=== PATIENT | female | born 1990 | race Caucasian/White ===

== ENCOUNTER 2016-10-11 15:12 | Emergency (ER) | payer BC, OTHER ==
[~2016-10-11] VITALS: Ht 175.3 cm; Wt 99.8 kg
[~2016-10-11 15:12] MED LIST: HYDR-2758 PO; NITR100C63 PO
[2016-10-11 16:01] VITALS: BP 129/72
--- NOTE | 2016-10-11 16:26 | RAD ---
2 views of the Chest 10/11/2016 5:29 PM Indication: Left-sided rib pain Comparison: None available Findings: There is no focal consolidation or infiltrate identified. There is no effusion or pneumothorax. The cardiomediastinal silhouette and pulmonary vasculature are within normal limits. No osseous abnormality is identified. Impression: No evidence of acute cardiopulmonary process.
--- NOTE | 2016-10-11 16:37 | PHYS DOC ---
Past Medical History Past Medical History: No Pertinent History Past Surgical History: Cholecystectomy Alcohol Use: Occasionally Drug Use: None Adult General Chief Complaint Chief Complaint: RIB PAIN HPI HPI Patient is a 26 year old female presents to emergency department stating that she's having left-sided abdominal pain that started around 2:00 this morning. She states the pain comes and goes and is sharp in nature. She states that the pain does not radiate. It has not caused any nausea or vomiting. She states that her stool this morning with soft with normal. She states that she was seen at urgent care and was diagnosed with an early urinary tract infection. She does state that she has some left flank pain and discomfort. Review of Systems Review of Systems Constitutional: Denies fever or chills [] Eyes: Denies change in visual acuity, redness, or eye pain [] HENT: Denies nasal congestion or sore throat [] Respiratory: Denies cough or shortness of breath [] Cardiovascular: No additional information not addressed in HPI [] GI: Left-sided abdominal pain, denies nausea, vomiting, bloody stools or diarrhea [] : Denies dysuria or hematuria [] Musculoskeletal: Denies back pain or joint pain [] Integument: Denies rash or skin lesions [] Neurologic: Denies headache, focal weakness or sensory changes [] Endocrine: Denies polyuria or polydipsia [] Allergies Allergies Allergies Coded Allergies Type Severity Reaction Last Updated Verified No Known Drug Allergies 08/22/14 No Physical Exam Physical Exam Constitutional: Well developed, well nourished, no acute distress, non-toxic appearance. [] HENT: Normocephalic, atraumatic, bilateral external ears normal, oropharynx moist, no oral exudates, nose normal. [] Eyes: PERRLA, EOMI, conjunctiva normal, no discharge. [] Neck: Normal range of motion, no tenderness, supple, no stridor. [] Cardiovascular:Heart rate regular rhythm, no murmur [] Lungs & Thorax: Bilateral breath sounds clear to auscultation [] Abdomen: Bowel sounds hypoactive, soft, no tenderness, no masses, no pulsatile masses. [] Skin: Warm, dry, no erythema, no rash. [] Back: No tenderness, left CVA tenderness. [] Extremities: No tenderness, no cyanosis, no clubbing, ROM intact, no edema. [] Neurologic: Alert and oriented X 3, normal motor function, normal sensory function, no focal deficits noted. [] Psychologic: Affect normal, judgement normal, mood normal. [] Current Patient Data Vital Signs Vital Signs Date Time Temp Pulse Resp B/P (MAP) Pulse Ox O2 Delivery O2 Flow Rate FiO2 10/11/16 16:01 98.0 102 24 99 Room Air 98.0 EKG EKG [] Radiology/Procedures Radiology/Procedures [][place] [address] IMAGING REPORT Signed PATIENT: ESTRELLA JAY ACCOUNT: [id number] : 1990 LOCATION: ER AGE: 26 SEX: F EXAM STATUS: REG ER ORD. PHYSICIAN: DEMSOND JAMES APRN REASON: left sided abdominal pain PROCEDURE: KUB KUB, 10/11/2016: History: Left-sided pain The abdominal gas pattern is unremarkable. There is no evidence of organomegaly. No abnormal abdominal calcification is seen. IMPRESSION: No significant abnormality is detected. DICTATED and SIGNED BY: ELVIN FLANNERY MD DATE: 10/11/16 1703 CC: DESMOND JAMES APRN; NO PCP; NON,STAFF ~ [place] [id number] IMAGING REPORT Signed PATIENT: ESTRELLA JAY ACCOUNT: [id number] : 1990 LOCATION: ER AGE: 26 SEX: F EXAM STATUS: REG ER ORD. PHYSICIAN: NURY MARTINEZ APRN REASON: rib pain PROCEDURE: CHEST PA & LATERAL 2 views of the Chest 10/11/2016 5:29 PM Indication: Left-sided rib pain Comparison: None available Findings: There is no focal consolidation or infiltrate identified. There is no effusion or pneumothorax. The cardiomediastinal silhouette and pulmonary vasculature are within normal limits. No osseous abnormality is identified. Impression: No evidence of acute cardiopulmonary process. DICTATED and SIGNED BY: PIPE SOLANO MD DATE: 10/11/16 1623 CC: NURY MARTINEZ APRN; NO PCP; NON,STAFF ~ Course & Med Decision Making Course & Med Decision Making Pertinent Labs and Imaging studies reviewed. (See chart for details) Patient states that she had slight shortness of air with the pain and discomfort however chest x-ray was negative for any abnormalities. KUB was negative for any abnormalities. Patient was placed on antibiotic at urgent care for urinary tract infection. I suspect with her having left CVA tenderness that she may have a kidney infection as well. Patient will continue with the antibiotic as prescribed with encouragement to drink plenty of fluids such as water and cranberry juice. Avoid cranberry juice cocktail, carbonated beverages , citrus fruits and alcohol. Patient once again denies any nausea or vomiting. We'll recommend that she follow up with her primary care physician in the next 5 -7 days. Since symptoms to return back to emergency department as been provided. [] Dragon Disclaimer Dragon Disclaimer This electronic medical record was generated, in whole or in part, using a voice recognition dictation system. Departure Departure Impression: Primary Impression: Left sided abdominal pain Disposition: 01 HOME, SELF-CARE Condition: STABLE Referrals: NO PCP (PCP) Patient Instructions: Abdominal Pain, [id number] Additional Instructions: Activity as tolerated Continue to take the antibiotic as prescribed Tylenol or Ibuprofen for pain and discomfort Drink plenty of fluids such as water and cranberry juice Avoid cranberry juice cocktail, carbonated beverages, citrus fruits, alcohol and caffeine as these are considered irritants to the bladder. Followup with your primary care provider in 7-10 days Return to emergency department as needed for signs and symptoms that become worse. DESMOND JAMES APRN Oct 11, 2016 16:37
--- NOTE | 2016-10-11 17:06 | RAD ---
KUB, 10/11/2016: History: Left-sided pain The abdominal gas pattern is unremarkable. There is no evidence of organomegaly. No abnormal abdominal calcification is seen. IMPRESSION: No significant abnormality is detected.
== END 2016-10-11 17:43 | disposition home or self-care (01) ==
LOC: ER 15:12
DX: R10.9 Unspecified abdominal pain (principal); R07.81 Pleurodynia; Z90.49 Acquired absence of other specified parts of digestive tract
CPT/HCPCS: 71020; 74000; 99284

== ENCOUNTER 2018-03-18 10:14 | Emergency (ER) | payer SELFPAY ==
[~2018-03-18] VITALS: Ht 175.3 cm; Wt 104.3 kg
[~2018-03-18 10:14] MED LIST changes: -HYDR-2758 PO; +HYDR-2761 PO
[2018-03-18 11:00] LABS: BILIRUBIN,URINE NEGATIVE (NEG); CLARITY,URINE CLEAR; COLOR,URINE YELLOW; NITRITE,URINE NEGATIVE (NEG); PROTEIN,URINE NEGATIVE (NEG-TRACE)
[2018-03-18 11:09] LABS: BACTERIA,URINE FEW /HPF (0-FEW); RBC,URINE OCC /HPF (0-2); SQUAMOUS EPITHELIAL CELL,UR MOD /LPF
[2018-03-18 11:27] LABS: BASO # 0.1 x10^3/uL (0.0-0.2); BASO % 1 % (0-3); EOS # 0.1 x10^3/uL (0.0-0.7); EOS % 2 % (0-3); HEMATOCRIT 41.1 % (36.0-47.0); HEMOGLOBIN 13.9 g/dL (12.0-15.5); LYMPH # 1.3 x10^3/uL (1.0-4.8); LYMPH % 18 % (24-48); MEAN CORPUSCULAR HEMOGLOBIN 31 pg (25-35); MEAN CORPUSCULAR HGB CONC 34 g/dL (31-37); MEAN CORPUSCULAR VOLUME 90 fL (79-100); MONO # 0.7 x10^3/uL (0.0-1.1); MONO % 9 % (0-9); NEUT % 70 % (31-73); PLATELET COUNT 239 x10^3/uL (140-400); RED BLOOD COUNT 4.56 x10^6/uL (3.50-5.40); WHITE BLOOD COUNT 7.1 x10^3/uL (4.0-11.0)
[2018-03-18 11:29] LABS: CALCIUM 8.8 mg/dL (8.5-10.1); CREATININE 0.7 mg/dL (0.6-1.0); GFR 101.1; POTASSIUM 3.7 mmol/L (3.5-5.1)
[2018-03-18] MEDS ORDERED: cefTRIAXone IM 250 MG VIAL IM ONE (11:30)
[2018-03-18] MEDS ORDERED: AZITHROMYCIN 250 MG TABLET. PO ONE (11:30)
--- NOTE | 2018-03-18 11:34 | PHYS DOC ---
Past Medical History Past Medical History: Other Additional Past Medical Histor: preeclampsia with past Past Surgical History: Cholecystectomy Alcohol Use: None Drug Use: None Adult General Chief Complaint Chief Complaint: ABDOMINAL PAIN IN HPI HPI Patient is a 27 year old female who presents to the emergency room with complaints of lower left quadrant abdominal cramping in early . Patient states her last menstrual cycle was on 02/01/2018. She is 3, para 1, A1. She denies any vaginal bleeding. States that she has had low back pain with urinary frequency, nausea, and vomiting. Patient states she has only vomited one time in the last 24 hours. She denies any dysuria, fever, foul- smelling urine, diarrhea, or urgency. He states she was seen at a clinic 10 days ago and was told that her test is positive. She also had a pelvic ultrasound at that time and was told that a gestational sac was not visible at this time. Pt reports increased clear vaginal discharge, denies any vaginal itching or odor. Review of Systems Review of Systems Constitutional: Denies fever or chills [] HENT: Denies nasal congestion or sore throat [] Respiratory: Denies cough or shortness of breath [] Cardiovascular: No additional information not addressed in HPI [] GI: Denies abdominal pain, nausea, vomiting, or diarrhea [] : Denies dysuria or hematuria; see HPI [] Musculoskeletal: Denies back pain or joint pain [] Integument: Denies rash or skin lesions [] Neurologic: Denies headache, focal weakness or sensory changes [] All other systems were reviewed and found to be within normal limits, except as documented in this note. Current Medications Current Medications Current Medications Medications (Trade) Dose Ordered Sig/Clau Start Time Stop Time Status Last Admin Dose Admin Azithromycin (Zithromax) 1,000 mg 1X ONCE 03/18/18 11:30 03/18/18 11:31 DC 03/18/18 11:43 1,000 MG Ceftriaxone Sodium (Rocephin Im) 250 mg 1X ONCE 03/18/18 11:30 03/18/18 11:31 DC 03/18/18 11:43 250 MG Allergies Allergies Allergies Coded Allergies Type Severity Reaction Last Updated Verified No Known Drug Allergies 03/18/18 No Physical Exam Physical Exam Constitutional: Well developed, well nourished, no acute distress, non-toxic appearance. [] HENT: Normocephalic, atraumatic, bilateral external ears normal, oropharynx moist, no oral exudates, nose normal. [] Eyes: conjunctiva normal, no discharge. [] Pelvic Exam: [employer] present Abdomen: Nontender, soft External Genitalia: Normal Skin Speculum: Normal vaginal mucosa, purulent cervical discharge Bimanual: No adnexal masses, L adnexal tenderness, positive CMT Skin: Warm, dry, no erythema, no rash. [] Extremities: No cyanosis, no clubbing, ROM intact, no edema. [] Neurologic: Alert and oriented X 3, normal motor function, normal sensory function, no focal deficits noted. [] Psychologic: Affect normal, judgement normal, mood normal. [] Current Patient Data Vital Signs Vital Signs Date Time Temp Pulse Resp B/P (MAP) Pulse Ox O2 Delivery O2 Flow Rate FiO2 03/18/18 12:59 80 18 111/64 (80) 99 Room Air 03/18/18 10:20 98.3 98.3 Lab Values Laboratory Tests Test 03/18/18 10:20 03/18/18 10:25 03/18/18 11:10 Urine Collection Type Unknown Urine Color Yellow Urine Clarity Clear Urine pH 7.0 Urine Specific [place] 1.025 Urine Protein Negative mg/dL (NEG-TRACE) Urine Glucose (UA) Negative mg/dL (NEG) Urine Ketones (Stick) Negative mg/dL (NEG) Urine Blood Negative (NEG) Urine Nitrite Negative (NEG) Urine Bilirubin Negative (NEG) Urine Urobilinogen Dipstick 1.0 mg/dL (0.2 mg/dL) Urine Leukocyte Esterase Large (NEG) Urine RBC Occ /HPF (0-2) Urine WBC 11-20 /HPF (0-4) Urine Squamous Epithelial Cells Mod /LPF Urine Bacteria Few /HPF (0-FEW) Urine Mucus Slight /LPF POC Urine HCG, Qualitative Hcg positive (Negative) White Blood Count 7.1 x10^3/uL (4.0-11.0) Red Blood Count 4.56 x10^6/uL (3.50-5.40) Hemoglobin 13.9 g/dL (12.0-15.5) Hematocrit 41.1 % (36.0-47.0) Mean Corpuscular Volume 90 fL (79-100) Mean Corpuscular Hemoglobin 31 pg (25-35) Mean Corpuscular Hemoglobin Concent 34 g/dL (31-37) Red Cell Distribution Width 13.0 % (11.5-14.5) Platelet Count 239 x10^3/uL (140-400) Neutrophils (%) (Auto) 70 % (31-73) Lymphocytes (%) (Auto) 18 % (24-48) L Monocytes (%) (Auto) 9 % (0-9) Eosinophils (%) (Auto) 2 % (0-3) Basophils (%) (Auto) 1 % (0-3) Neutrophils # (Auto) 5.0 x10^3uL (1.8-7.7) Lymphocytes # (Auto) 1.3 x10^3/uL (1.0-4.8) Monocytes # (Auto) 0.7 x10^3/uL (0.0-1.1) Eosinophils # (Auto) 0.1 x10^3/uL (0.0-0.7) Basophils # (Auto) 0.1 x10^3/uL (0.0-0.2) Maternal Serum HCG Beta Subunit 86279 mIU/mL (0-5) H Sodium Level 140 mmol/L (136-145) Potassium Level 3.7 mmol/L (3.5-5.1) Chloride Level 104 mmol/L (98-107) Carbon Dioxide Level 28 mmol/L (21-32) Anion Gap 8 (6-14) Blood Urea Nitrogen 10 mg/dL (7-20) Creatinine 0.7 mg/dL (0.6-1.0) Estimated GFR (Cockcroft-Gault) 101.1 BUN/Creatinine Ratio 14 (6-20) Glucose Level 77 mg/dL (70-99) Calcium Level 8.8 mg/dL (8.5-10.1) Total Bilirubin 0.4 mg/dL (0.2-1.0) Aspartate Amino Transferase (AST) 13 U/L (15-37) L Alanine Aminotransferase (ALT) 24 U/L (14-59) Alkaline Phosphatase 62 U/L (46-116) Total Protein 7.3 g/dL (6.4-8.2) Albumin 3.5 g/dL (3.4-5.0) Albumin/Globulin Ratio 0.9 (1.0-1.7) L Laboratory Tests 03/18/18 11:10 Laboratory Tests 03/18/18 11:10 Microbiology 03/18/18 Wet Prep - Final, Complete EKG EKG [] Radiology/Procedures Radiology/Procedures PROCEDURE: OB <14 WKS W/TV Obstetrical ultrasound, 03/18/2018: HISTORY: Pelvic pain, Transabdominal and transvaginal scans were obtained. There is a single intrauterine gestational sac. It contains a yolk sac and a pole demonstrating a crown-rump rump length of 4 mm. This suggests a gestational age of 6 weeks and 1 day yielding a sonographic EDC of 11/11/2015. Faint cardiac activity is evident with a heart rate of 100 bpm. There is no evidence of subchorionic hemorrhage. The left ovary is unremarkable. The right ovary is mildly enlarged and contains 2 cysts, the largest width which measures 2.2 cm. There are several other smaller follicular cysts in the right ovary. Blood flow is present in both ovaries. The adnexal regions are otherwise unremarkable. A trace amount of free fluid is noted in the pelvis. IMPRESSION: 1. Single viable intrauterine fetus of approximately 6 weeks gestational age. 2. Small right ovarian cysts. 3. Trace amount of free fluid in the pelvis.[] Course & Med Decision Making Course & Med Decision Making Pertinent Labs and Imaging studies reviewed. (See chart for details) [] Dragon Disclaimer Dragon Disclaimer This electronic medical record was generated, in whole or in part, using a voice recognition dictation system. Departure Departure Impression: Primary Impression: Normal IUP (intrauterine ) on ultrasound Additional Impressions: Urinary tract infection affecting Contact with and (suspected) exposure to infections with a predominantly sexual mode of transmission Disposition: 01 HOME, SELF-CARE Condition: STABLE Referrals: NO PCP (PCP) Patient Instructions: ABCs of , - Urinary Tract Infection Additional Instructions: According to your ultrasound you are 6 weeks 1 day and your due date is 11/10/18. You were treated for a suspected STI with Rocephin, and Zithromax. Avoid having intercourse until the results of gonorrhea and chlamydia testing are available, these results will not be available for 48 hours. If one or both of these tests is positive, you need to refrain from intercourse for approximately 2 weeks following the treatment of any current partners. Fill prescription and use as directed. Increase clear fluids avoiding bladder irritants such as caffeine, carbonation, and spicy foods. Follow-up with your OB /ZONING TECHNICIAN for further care. Scripts Cephalexin (KEFLEX) 500 Mg Capsule 1 CAP PO BID, #14 CAP 0 Refills Prov: EUGENE MELÉNDEZ [employer]GER [employer] 03/18/18 Problem Qualifiers Primary Impression: Normal IUP (intrauterine ) on ultrasound Trimester: first trimester Qualified Codes: Z34.91 - Encounter for supervision of normal , unspecified, first trimester EUGENE MELÉNDEZ MANAGER [employer] Mar 18, 2018 11:34
[2018-03-18 11:35] LABS: ALBUMIN 3.5 g/dL (3.4-5.0); ALBUMIN/GLOBULIN RATIO 0.9 (1.0-1.7); TOTAL BILIRUBIN 0.4 mg/dL (0.2-1.0); TOTAL PROTEIN 7.3 g/dL (6.4-8.2)
--- NOTE | 2018-03-18 13:20 | RAD ---
Obstetrical ultrasound, 03/18/2018: HISTORY: Pelvic pain, Transabdominal and transvaginal scans were obtained. There is a single intrauterine gestational sac. It contains a yolk sac and a pole demonstrating a crown-rump rump length of 4 mm. This suggests a gestational age of 6 weeks and 1 day yielding a sonographic EDC of 11/11/2015. Faint cardiac activity is evident with a heart rate of 100 bpm. There is no evidence of subchorionic hemorrhage. The left ovary is unremarkable. The right ovary is mildly enlarged and contains 2 cysts, the largest width which measures 2.2 cm. There are several other smaller follicular cysts in the right ovary. Blood flow is present in both ovaries. The adnexal regions are otherwise unremarkable. A trace amount of free fluid is noted in the pelvis. IMPRESSION: 1. Single viable intrauterine fetus of approximately 6 weeks gestational age. 2. Small right ovarian cysts. 3. Trace amount of free fluid in the pelvis. Electronically signed by: Pradeep Omalley MD (03/18/2018 1:16 PM) [facility]
[2018-03-18] MEDS ORDERED: CEPH-264 PO (13:57)
[2018-03-18 14:05] VITALS: BP 104/65
== END 2018-03-18 14:11 | disposition home or self-care (01) ==
LOC: ER 10:14
DX: O23.41 Unspecified infection of urinary tract in pregnancy, first trimester (principal); Z20.2 Contact with and (suspected) exposure to infections with a predominantly sexual mode of transmission; Z90.49 Acquired absence of other specified parts of digestive tract; Z3A.01 Less than 8 weeks gestation of pregnancy
CPT/HCPCS: 76801; 76817; 80053; 81001; 81025; 84702; 85025; 87086; 96372; 99284; J0696; Q0111; Q0144

== ENCOUNTER 2018-04-21 22:51 | Emergency (ER) | payer SELFPAY ==
[~2018-04-21] VITALS: Ht 175.3 cm; Wt 104.3 kg
[~2018-04-21 22:51] MED LIST changes: +CEPH-264 PO
[2018-04-21 23:31] VITALS: BP 125/76
--- NOTE | 2018-04-21 23:55 | PHYS DOC ---
Past Medical History Past Medical History: Other Additional Past Medical Histor: preeclampsia with past Past Surgical History: Cholecystectomy Alcohol Use: None Drug Use: None Adult General Chief Complaint Chief Complaint: SORE THROAT HPI HPI Patient is a 27 year old [f__sex] who presents with [] Review of Systems Review of Systems Constitutional: Denies fever or chills [] Eyes: Denies change in visual acuity, redness, or eye pain [] HENT: Denies nasal congestion or sore throat [] Respiratory: Denies cough or shortness of breath [] Cardiovascular: No additional information not addressed in HPI [] GI: Denies abdominal pain, nausea, vomiting, bloody stools or diarrhea [] : Denies dysuria or hematuria [] Musculoskeletal: Denies back pain or joint pain [] Integument: Denies rash or skin lesions [] Neurologic: Denies headache, focal weakness or sensory changes [] Endocrine: Denies polyuria or polydipsia [] All other systems were reviewed and found to be within normal limits, except as documented in this note. Allergies Allergies Allergies Coded Allergies Type Severity Reaction Last Updated Verified No Known Drug Allergies 03/18/18 No Physical Exam Physical Exam Constitutional: Well developed, well nourished, no acute distress, non-toxic appearance. [] HENT: Normocephalic, atraumatic, bilateral external ears normal, oropharynx moist, no oral exudates, nose normal. [] Eyes: PERRLA, EOMI, conjunctiva normal, no discharge. [] Neck: Normal range of motion, no tenderness, supple, no stridor. [] Cardiovascular:Heart rate regular rhythm, no murmur [] Lungs & Thorax: Bilateral breath sounds clear to auscultation [] Abdomen: Bowel sounds normal, soft, no tenderness, no masses, no pulsatile masses. [] Skin: Warm, dry, no erythema, no rash. [] Back: No tenderness, no CVA tenderness. [] Extremities: No tenderness, no cyanosis, no clubbing, ROM intact, no edema. [] Neurologic: Alert and oriented X 3, normal motor function, normal sensory function, no focal deficits noted. [] Psychologic: Affect normal, judgement normal, mood normal. [] Current Patient Data Vital Signs Vital Signs Date Time Temp Pulse Resp B/P (MAP) Pulse Ox O2 Delivery O2 Flow Rate FiO2 04/21/18 23:31 98.1 94 20 125/76 (92) 99 Room Air 98.1 EKG EKG [] Radiology/Procedures Radiology/Procedures [] Course & Med Decision Making Course & Med Decision Making Pertinent Labs and Imaging studies reviewed. (See chart for details) [] Dragon Disclaimer Dragon Disclaimer This electronic medical record was generated, in whole or in part, using a voice recognition dictation system. Departure Departure Impression: Primary Impression: Viral syndrome Disposition: HOME, SELF-CARE Condition: STABLE Referrals: NO PCP (PCP) Patient Instructions: Viral Syndrome Additional Instructions: Drink plenty of fluids. [id number] lozenges sore throat. Tylenol as directed on container for pain. Always check with your SENIOR SQL DEVELOPER doctor prior to starting any new medications to ensure medications are safe with . If symptoms persist or with any concerns follow up with SENIOR SQL DEVELOPER for reevaluation and further care. NUHA GUERRA APRN Apr 21, 2018 23:55
[2018-04-22] MEDS ORDERED: ACETAMINOPHEN 500 MG TABLET PO ONE (00:15)
== END 2018-04-22 00:31 | disposition home or self-care (01) ==
LOC: ER 04-22 00:02
DX: O98.511 Other viral diseases complicating pregnancy, first trimester (principal); Z90.49 Acquired absence of other specified parts of digestive tract
CPT/HCPCS: 87880; 99283